=== PATIENT | female | born 1980 | race African-American/Black ===

== ENCOUNTER 2017-02-01 20:52 | Emergency (ER) | payer SELFPAY ==
[2017-02-01] MEDS ORDERED: HYDROCODONE/ACETAMINOPHEN 5-325 MG 6 TAB/DSPK PO PRN (21:53)
[2017-02-01] MEDS ORDERED: IBUPROFEN 800 MG TABLET PO ONE (21:53)
--- NOTE | 2017-02-01 21:58 | ER Document Report ---
HPI - HPI Patient complains to provider of: left hip pain Onset: Other - 2 weeks Onset/Duration: Persistent Quality of pain: Achy Pain Level: 4 Context: Pt states that she typically has left anterior hip pain about every 2 weeks that reoccurs after long periods of standing or walking. Patient reports that her current pain episode has lasted for 2 weeks. Patient denies any new injury or trauma. Patient states that she does do a lot of standing and walking at her job. Associated Symptoms: denies: Chills, Fever Exacerbated by: Standing, Movement, Walking Relieved by: Denies Similar symptoms previously: Yes Recently seen / treated by doctor: No - ROS ROS below otherwise negative: Yes Systems Reviewed and Negative: Yes All other systems reviewed and negative - CONSTITUTIONAL Constitutional: DENIES: Fever, Chills - NEURO Neurology: DENIES: Weakness - CARDIOVASCULAR Cardiovascular: DENIES: Chest pain - REPRODUCTIVE LMP: 01-25-17 Reproductive: DENIES: : - MUSCULOSKELETAL Musculoskeletal: REPORTS: Extremity pain - left hip. DENIES: Back Pain - DERM Skin Color: Normal Skin Problems: None Past Medical History - General Information source: Patient - Social History Smoking Status: Never Smoker Chew tobacco use (# tins/day): No Frequency of alcohol use: None Drug Abuse: None Family History: Reviewed & Not Pertinent Patient has suicidal ideation: No Patient has homicidal ideation: No - Medical History Medical History: Negative Pulmonary Medical History: Reports: Hx Asthma Endocrine Medical History: Reports: Hx Diabetes Mellitus Type 2 Renal/ Medical History: Denies: Hx Peritoneal Dialysis Skin Medical History: Reports Hx Eczema - SEVERE Past Surgical History: Reports: Other - cataract - Immunizations Hx Diphtheria, Pertussis, Tetanus Vaccination: No Vertical Provider Document - CONSTITUTIONAL Agree With Documented VS: Yes Exam Limitations: No Limitations General Appearance: WD/WN, No Apparent Distress - INFECTION CONTROL TRAVEL OUTSIDE OF THE [place] IN LAST 30 DAYS: No - HEENT HEENT: Atraumatic - NECK Neck: Normal Inspection - RESPIRATORY Respiratory: Breath Sounds Normal, No Respiratory Distress O2 Sat by Pulse Oximetry: 97 - CARDIOVASCULAR Cardiovascular: Regular Rate, Regular Rhythm, No Murmur Pulses: Normal: Posterior tibial, Dorsalis pedis - BACK Back: Normal Inspection Notes: No midline tenderness, no SI joint tenderness - MUSCULOSKELETAL/EXTREMETIES Musculoskeletal/Extremeties: MAEW, FROM, Tender - Left anterior hip tenderness with palpation, normal skin color and temperature overlying joint. No dislocation or deformity. Tenderness increases with hip abduction and adduction , and weight bearing - NEURO Level of Consciousness: Awake, Alert, Appropriate Motor/Sensory: No Motor Deficit, No Sensory Deficit - DERM Integumentary: Warm, Dry, No Rash Course - Vital Signs Vital signs: Temp Pulse Resp BP Pulse Ox 97.9 F 94 18 125/79 97 02/01/17 21:17 02/01/17 21:17 02/01/17 21:17 02/01/17 21:17 02/01/17 21:17 Discharge - Discharge Clinical Impression: Hip bursitis Qualifiers: Hip bursitis location: unspecified Laterality: left Qualified Code(s): M70.72 - Other bursitis of hip, left hip Condition: Stable Disposition: HOME, SELF-CARE Instructions: Bursitis ([facility]), Anti-Inflammatory Medication ([facility]), Oral Narcotic Medication ([facility]), Use of Crutches ([facility]) Additional Instructions: Return immediately for any new or worsening symptoms Followup with your primary care provider, call tomorrow to make a followup appointment Follow-up with orthopedic doctor for further evaluation, call tomorrow for follow-up appointment Weight bearing as tolerated Prescriptions: Naproxen [Naprosyn 250 Nmg Tablet] 1 tab PO BID #14 tablet Forms: Return to Work Referrals: [facility] ([facility]) [Provider Group] - Follow up tomorrow
[2017-02-01 22:07] VITALS: BP 138/84
== END 2017-02-01 22:06 | disposition home or self-care (01) ==
LOC: ER 20:52
DX: M70.72 Other bursitis of hip, left hip (principal); M25.552 Pain in left hip; J45.909 Unspecified asthma, uncomplicated; E11.9 Type 2 diabetes mellitus without complications
CPT/HCPCS: 99283